=== PATIENT | female | born 1940 | race Two or more races ===

== ENCOUNTER 2024-04-10 23:16 | Inpatient (IN) | payer MEDICARE, OTHER ==
[~2024-04-10] VITALS: Ht 152.4 cm; Wt 37.6 kg
[2024-04-10] MEDS: CEFEPIME 1 GM in IV D5W 50 ML IV ONE (23:30)
[2024-04-10] MEDS ORDERED: VANCOMYCIN 1 GM /D5W 250 ML PB IV ONE (23:35)
[2024-04-10] MEDS ORDERED: CEFEPIME 1 GM VIAL ONE (23:35)
[2024-04-10] MEDS ORDERED: ACETAMINOPHEN 650 MG/SUPP.RECT RC ONE (23:35)
[2024-04-11] VITALS (80 sets, daily range): BP systolic 63–133; BP diastolic 36–114; TEMP 97.8–98.6; O2SAT 93–99
[2024-04-11] MEDS: ACETAMINOPHEN 650 MG/SUPP.RECT RC ONE (00:06)
[2024-04-11] MEDS: IV NS 0.9% 1,000 ML BAG IV ONE (00:06)
[2024-04-11] MEDS: VANCOMYCIN 1 GM in IV D5W 250 ML IV ONE (00:18)
[2024-04-11] MEDS: Calcium Gluconate 1GM/10ML 4.65 MEQ in IV NS 0.9% 100 ML IV ONE ×2 (01:30→02:30)
[2024-04-11] MEDS ORDERED: Calcium Gluconate 0.465 MEQ/ML VIAL IV ONE (01:39)
[2024-04-11] MEDS: POTASSIUM CL. PREMIX PERIPHER. 50 ML IV SCH (01:45)
[2024-04-11 02:00] LABS: APPEARANCE,URINE CLEAR (CLEAR); BILIRUBIN,URINE NEGATIVE (NEGATIVE); BLOOD, URINE NEGATIVE Ery/uL (NEGATIVE); COLOR,URINE YELLOW (YELLOW); KETONES,URINE NEGATIVE (NEGATIVE); LEUKOCYTE ESTERASE ,URINE 2+ (NEGATIVE); NITRITE, URINE NEGATIVE (NEGATIVE); PH,URINE 5.5 (5.0-8.0); PROTEIN,URINE NEGATIVE (NEGATIVE); UGLUCOSE NEGATIVE (NEGATIVE); UROBILINOGEN,URINE 0.2 EU/dL (0.2)
[2024-04-11] MEDS ORDERED: IOHEXOL-300 100 ML VIAL IV ONE (02:02)
[2024-04-11 02:37] LABS: SQUAMOUS EPITHELIAL CELL,UR Moderate /HPF (None Seen)
[2024-04-11 02:38] LABS: BACTERIA,URINE Moderate /HPF (None Seen)
[2024-04-11 02:39] LABS: RBC,URINE 0-2 /HPF (0-2)
[2024-04-11 02:40] LABS: ADD URINE CULTURE YES
[2024-04-11] MEDS ORDERED: POTASSIUM CL. PREMIX PERIPHER. 50 ML ONE (02:54)
[2024-04-11] MEDS ORDERED: MAGNESIUM HYDROXIDE 30 ML UDC PO PRN (03:30)
[2024-04-11] MEDS ORDERED: Z GUARD REMEDY 4 OZ OINT TP PRN (03:30)
[2024-04-11] MEDS ORDERED: ONDANSETRON HCL/PF 4 MG/2 ML VIAL IVP PRN (03:30)
[2024-04-11] MEDS ORDERED: MAG HYDROX/AL HYDROX/SIMETH 30 ML UDC PO PRN (03:30)
[2024-04-11] MEDS ORDERED: ACETAMINOPHEN 325 MG TABLET PO PRN (03:30)
[2024-04-11] MEDS ORDERED: PHENYLEPHRINE 50 MG in IV NS 0.9% 245 ML IV PRN (03:30)
[2024-04-11] MEDS ORDERED: OLAN5TAB6 PO (03:40)
[2024-04-11] MEDS ORDERED: GABA-532 PO (03:40)
[2024-04-11] MEDS ORDERED: OLAN5TAB3 PO (03:40)
[2024-04-11] MEDS ORDERED: POTASSIUM CL. PREMIX PERIPHER. 100 ML ONE (03:52)
[2024-04-11] MEDS: METRONIDAZOLE 500MG/ NS 100ML 500 MG in PREMIX 1 EA IV SCH (04:32)
[2024-04-11] MEDS: METRONIDAZOLE 500MG/ NS 100ML 100 ML IV ONE (04:51)
[2024-04-11] MEDS: PHENYLEPHRINE 50 MG in IV NS 0.9% 245 ML IV PRN (05:13)
[2024-04-11] MEDS: PHENYLEPHRINE 10 MG/ML VIAL ONE (05:24)
[2024-04-11] MEDS ORDERED: HYDR28.32 TP (08:27)
[2024-04-11] MEDS: PANTOPRAZOLE 40 MG VIAL IV SCH (08:44)
[2024-04-11 08:47] LABS: ABG BASE EXCESS -6.3 mmol/L (-2.0-3.0); ABG OXYGEN SATURATION 93.9 % (94.0-98.0); ABG PCO2 25.7 mmHg (32.0-45.0); ABG PH 7.426 (7.350-7.450); ABG PO2 67.3 mmHg (83.0-108.0); ABG TOTAL HEMOGLOBIN 12.3 G/dL (12.0-16.0); COHb 0.3 % (0.5-1.5); MetHb 0.1 % (0.0-1.5); O2Hb 93.5 % (94.0-97.0)
[2024-04-11] MEDS: IV 1/2NS 1000 ML 1,000 ML IV PRN (09:56)
[2024-04-11] MEDS: CEFEPIME 2 GM in IV D5W 100 ML IV SCH (10:18)
[2024-04-11] MEDS: Sodium Bicarbonate 100 MEQ in IV D5 / 0.2% NACL 1,000 ML IV SCH (11:13)
[2024-04-11] MEDS: THERAHONEY GEL 1.5 OZ TUBE TP SCH (12:37)
[2024-04-11] MEDS: MUPIROCIN OINT 2% 22 GM TUBE TP SCH (12:37)
[2024-04-11 14:25] LABS: CALCIUM, SERUM 7.7 mg/dL (8.5-10.1); CREATININE 1.6 mg/dL (0.6-1.3); MAGNESIUM 1.8 mg/dL (1.8-2.4); PHOSPHORUS 3.8 mg/dL (2.5-4.9); POTASSIUM 5.7 mmol/L (3.5-5.1)
[2024-04-11 14:29] LABS: MEAN CORPUSCULAR HEMOGLOBIN 29 PG (26.0-33.0)
[2024-04-11 14:34] LABS: EOSINOPHILS % (AUTO) 0.1 % (0.0-6.0); HEMATOCRIT 45 % (33-45); HEMOGLOBIN 14.2 g/dL (11.5-14.8); LYMPHOCYTES # (AUTO) 1.5 K/uL (0.8-4.8); LYMPHOCYTES % (AUTO) 4.7 % (20.0-44.0); MEAN CORPUSCULAR HGB CONC 32 g/dl (31.0-36.0); MEAN CORPUSCULAR VOLUME 92 fL (82-100); MONOCYTES # (AUTO) 0.5 K/uL (0.1-1.30); MONOCYTES % (AUTO) 1.5 % (2.0-12.0); NEUTROPHILS # (AUTO) 28.9 K/uL (1.8-8.9); NEUTROPHILS % (AUTO) 93.7 % (43.0-81.0); PLATELET COUNT (AUTO) 174 K/uL (150-450); RED BLOOD CELL COUNT(AUTO) 4.83 MIL/uL (4.0-5.2); RED CELL DISTRIBUTION WIDTH 15.6 % (11.5-15.0)
[2024-04-11 15:12] LABS: WHITE BLOOD COUNT (AUTO) 30.8 K/uL (4.3-11.0)
[2024-04-11 15:15] LABS: BAND % (MANUAL) 20 % (0.0-5.0); LYMPHOCYTES % (MANUAL) 5 % (16-48); MONOCYTES % (MANUAL) 1 % (0-11.0); NEUTROPHILS % (MANUAL) 74 (42-76); PLATELET ESTIMATE ADEQUATE
[2024-04-11 15:21] LABS: CALCIUM, SERUM 7.9 mg/dL (8.5-10.1); CREATININE 1.5 mg/dL (0.6-1.3); POTASSIUM 4.8 mmol/L (3.5-5.1)
[2024-04-11 18:26] LABS: OCCULT BLOOD STOOL NEGATIVE (NEGATIVE)
[2024-04-11] MEDS ORDERED: CEFEPIME 1 GM in IV D5W 50 ML IV SCH (21:00)
[2024-04-12] VITALS (59 sets, daily range): BP systolic 88–149; BP diastolic 51–94; TEMP 97.7–98.4; O2SAT 91–99
[2024-04-12 04:43] LABS: BASOPHILS % (AUTO) 0.1 % (0.0-2.0); EOSINOPHILS # (AUTO) 0.2 K/uL (0.0-0.7); EOSINOPHILS % (AUTO) 0.9 % (0.0-6.0); HEMATOCRIT 40 % (33-45); HEMOGLOBIN 13.2 g/dL (11.5-14.8); LYMPHOCYTES # (AUTO) 1.1 K/uL (0.8-4.8); LYMPHOCYTES % (AUTO) 4.7 % (20.0-44.0); MEAN CORPUSCULAR HEMOGLOBIN 29 PG (26.0-33.0); MEAN CORPUSCULAR HGB CONC 33 g/dl (31.0-36.0); MEAN CORPUSCULAR VOLUME 88 fL (82-100); MONOCYTES # (AUTO) 0.4 K/uL (0.1-1.30); MONOCYTES % (AUTO) 1.7 % (2.0-12.0); NEUTROPHILS # (AUTO) 21.7 K/uL (1.8-8.9); NEUTROPHILS % (AUTO) 92.6 % (43.0-81.0); PLATELET COUNT (AUTO) 242 K/uL (150-450); RED BLOOD CELL COUNT(AUTO) 4.58 MIL/uL (4.0-5.2); RED CELL DISTRIBUTION WIDTH 14.7 % (11.5-15.0); WHITE BLOOD COUNT (AUTO) 23.4 K/uL (4.3-11.0)
[2024-04-12 04:59] LABS: ALBUMIN 1.5 g/dL (3.4-5.0); BILIRUBIN,TOTAL 0.7 mg/dL (0.2-1.0); CALCIUM, SERUM 7.2 mg/dL (8.5-10.1); CREATININE 1.3 mg/dL (0.6-1.3); MAGNESIUM 1.7 mg/dL (1.8-2.4); PHOSPHORUS 2.9 mg/dL (2.5-4.9); POTASSIUM 3.8 mmol/L (3.5-5.1); TOTAL PROTEIN, SERUM 5.8 g/dL (6.4-8.2)
[2024-04-12] MEDS: Magnesium 1GM/D5W 100ML PREMIX 100 ML IV SCH (09:38)
[2024-04-12] MEDS: IV 1/2NS 1000 ML 1,000 ML IV PRN (11:09)
[2024-04-12] MEDS: VANCOMYCIN 500 MG in IV D5W 100ml IV SCH (15:42)
[2024-04-13] VITALS (14 sets, daily range): BP systolic 92–124; BP diastolic 52–81; TEMP 97–98.4; O2SAT 89–97
[2024-04-13 05:12] LABS: BASOPHILS % (AUTO) 0.1 % (0.0-2.0); EOSINOPHILS # (AUTO) 0.1 K/uL (0.0-0.7); EOSINOPHILS % (AUTO) 0.7 % (0.0-6.0); HEMATOCRIT 38 % (33-45); HEMOGLOBIN 12.9 g/dL (11.5-14.8); LYMPHOCYTES # (AUTO) 0.2 K/uL (0.8-4.8); LYMPHOCYTES % (AUTO) 2.3 % (20.0-44.0); MEAN CORPUSCULAR HEMOGLOBIN 30 PG (26.0-33.0); MEAN CORPUSCULAR HGB CONC 34 g/dl (31.0-36.0); MEAN CORPUSCULAR VOLUME 88 fL (82-100); MONOCYTES # (AUTO) 0.1 K/uL (0.1-1.30); MONOCYTES % (AUTO) 0.9 % (2.0-12.0); NEUTROPHILS # (AUTO) 10.2 K/uL (1.8-8.9); PLATELET COUNT (AUTO) 205 K/uL (150-450); RED BLOOD CELL COUNT(AUTO) 4.29 MIL/uL (4.0-5.2); RED CELL DISTRIBUTION WIDTH 15.1 % (11.5-15.0); WHITE BLOOD COUNT (AUTO) 10.7 K/uL (4.3-11.0)
[2024-04-13 05:27] LABS: CALCIUM, SERUM 7.4 mg/dL (8.5-10.1); MAGNESIUM 2.5 mg/dL (1.8-2.4); PHOSPHORUS 2.7 mg/dL (2.5-4.9); POTASSIUM 3.2 mmol/L (3.5-5.1)
[2024-04-13 08:11] LABS: PTH, INTACT 47 pg/mL (15-65)
[2024-04-13] MEDS: CEFEPIME 2 GM in IV D5W 100 ML IV SCH (08:56)
[2024-04-13] MEDS: POTASSIUM CL. PREMIX PERIPHER. 50 ML IV SCH (09:31)
[2024-04-13 10:12] LABS: CREATININE, URINE 37.2 MG/DL (30.0-125.0); URINE TOTAL PROTEIN 50.2 mg/dL (0-11.9)
[2024-04-13 13:10] LABS: *SPE A/G RATIO 0.5 (0.7-1.7); *SPE ALBUMIN 1.7 g/dL (2.9-4.4); *SPE ALPHA-1-GLOBULIN 0.4 g/dL (0.0-0.4); *SPE ALPHA-2-GLOBULIN 0.8 g/dL (0.4-1.0); *SPE BETA GLOBULIN 0.8 g/dL (0.7-1.3); *SPE GLOBULIN, TOTAL 3.6 g/dL (2.2-3.9); *SPE M-SPIKE Not Observed g/dL (Not Observed); *SPE PROTEIN TOTAL 5.3 g/dL (6.0-8.5); *SPEGAMMA GLOBULIN 1.5 g/dL (0.4-1.8)
[2024-04-14] VITALS: BP 96/50; TEMP 96.9; O2SAT 97
[2024-04-14 04:00] VITALS: BP 101/65; TEMP 97; O2SAT 94
[2024-04-14 07:08] LABS: CALCIUM, SERUM 7.4 mg/dL (8.5-10.1); POTASSIUM 3.9 mmol/L (3.5-5.1)
[2024-04-14 07:09] LABS: EOSINOPHILS # (AUTO) 0.1 K/uL (0.0-0.7); EOSINOPHILS % (AUTO) 1.2 % (0.0-6.0); HEMATOCRIT 41 % (33-45); HEMOGLOBIN 13.3 g/dL (11.5-14.8); LYMPHOCYTES # (AUTO) 0.4 K/uL (0.8-4.8); MEAN CORPUSCULAR HEMOGLOBIN 29 PG (26.0-33.0); MEAN CORPUSCULAR HGB CONC 32 g/dl (31.0-36.0); MEAN CORPUSCULAR VOLUME 90 fL (82-100); MONOCYTES # (AUTO) 0.3 K/uL (0.1-1.30); MONOCYTES % (AUTO) 2.7 % (2.0-12.0); NEUTROPHILS # (AUTO) 11.2 K/uL (1.8-8.9); NEUTROPHILS % (AUTO) 93.1 % (43.0-81.0); PLATELET COUNT (AUTO) 205 K/uL (150-450); RED BLOOD CELL COUNT(AUTO) 4.57 MIL/uL (4.0-5.2); RED CELL DISTRIBUTION WIDTH 15.8 % (11.5-15.0); WHITE BLOOD COUNT (AUTO) 12.1 K/uL (4.3-11.0)
[2024-04-14 08:00] VITALS: BP 113/54; TEMP 97.9; O2SAT 94
[2024-04-14 11:28] LABS: EOSINOPHILS % (MANUAL) 1 % (0-4); LYMPHOCYTES % (MANUAL) 2 % (16-48); MONOCYTES % (MANUAL) 4 % (0-11.0); NEUTROPHILS % (MANUAL) 93 (42-76); PLATELET ESTIMATE ADEQUATE
[2024-04-14] MEDS ORDERED: TPN/PPN PER PHARMACY IV PRN (11:30)
[2024-04-14 12:00] VITALS: BP 118/65; TEMP 98; O2SAT 94
[2024-04-14] MEDS: BLOOD SUGAR DIAGNOSTIC 1 EACH STRIP IN SCH (12:18)
[2024-04-14] MEDS: DEXTROSE 50%-WATER 50 ML DISP.SYRIN IV PRN (12:20)
[2024-04-14 14:04] LABS: MAGNESIUM 2.5 mg/dL (1.8-2.4); PHOSPHORUS 3.4 mg/dL (2.5-4.9)
[2024-04-14] MEDS: TPN BAG #1 IV SCH (14:31)
[2024-04-14 16:00] VITALS: BP 93/81; TEMP 98.2; O2SAT 94
[2024-04-14] MEDS: IV 1/2NS 1000 ML 1,000 ML IV PRN (17:43)
[2024-04-14 20:00] VITALS: BP 97/55; TEMP 97.5; O2SAT 94
[2024-04-15] VITALS (7 sets, daily range): BP systolic 102–123; BP diastolic 57–99; TEMP 97.5–98; O2SAT 92–97
[2024-04-15] MEDS: INSULIN REGULAR, HUMAN 100 UNIT/ML 3 ML VIAL SQ PRN (00:22)
[2024-04-15 07:20] LABS: BASOPHILS % (AUTO) 0.1 % (0.0-2.0); EOSINOPHILS # (AUTO) 0.1 K/uL (0.0-0.7); EOSINOPHILS % (AUTO) 0.6 % (0.0-6.0); HEMATOCRIT 41 % (33-45); HEMOGLOBIN 13.1 g/dL (11.5-14.8); LYMPHOCYTES # (AUTO) 0.4 K/uL (0.8-4.8); LYMPHOCYTES % (AUTO) 4.3 % (20.0-44.0); MEAN CORPUSCULAR HEMOGLOBIN 29 PG (26.0-33.0); MEAN CORPUSCULAR HGB CONC 32 g/dl (31.0-36.0); MEAN CORPUSCULAR VOLUME 92 fL (82-100); MONOCYTES # (AUTO) 0.2 K/uL (0.1-1.30); MONOCYTES % (AUTO) 2.9 % (2.0-12.0); NEUTROPHILS # (AUTO) 7.6 K/uL (1.8-8.9); NEUTROPHILS % (AUTO) 92.1 % (43.0-81.0); PLATELET COUNT (AUTO) 179 K/uL (150-450); RED BLOOD CELL COUNT(AUTO) 4.46 MIL/uL (4.0-5.2); RED CELL DISTRIBUTION WIDTH 16.1 % (11.5-15.0); WHITE BLOOD COUNT (AUTO) 8.2 K/uL (4.3-11.0)
[2024-04-15 07:23] LABS: CREATININE 1.3 mg/dL (0.6-1.3); MAGNESIUM 2.3 mg/dL (1.8-2.4); PHOSPHORUS 3.1 mg/dL (2.5-4.9); POTASSIUM 3.6 mmol/L (3.5-5.1)
[2024-04-15] MEDS: IV NS 0.9% 1,000 ML IV PRN (09:59)
[2024-04-15 10:09] LABS: ABG OXYGEN SATURATION 88.7 % (94.0-98.0); ABG PCO2 63.2 mmHg (32.0-45.0); ABG PH 7.097 (7.350-7.450); ABG PO2 60.9 mmHg (83.0-108.0); ABG TOTAL HEMOGLOBIN 13.8 G/dL (12.0-16.0); COHb 0.5 % (0.5-1.5); MetHb 0.1 % (0.0-1.5); O2Hb 88.2 % (94.0-97.0); SITE, ABG RIGHT RADIAL
[2024-04-15 13:15] LABS: ABG BASE EXCESS -11.7 mmol/L (-2.0-3.0); ABG OXYGEN SATURATION 97.9 % (94.0-98.0); ABG PCO2 60.3 mmHg (32.0-45.0); ABG PH 7.103 (7.350-7.450); ABG PO2 114.5 mmHg (83.0-108.0); ABG TOTAL HEMOGLOBIN 13.8 G/dL (12.0-16.0); COHb 0.4 % (0.5-1.5); MetHb 0.1 % (0.0-1.5); O2Hb 97.4 % (94.0-97.0); SITE, ABG RIGHT RADIAL
[2024-04-15] MEDS: TPN BAG #2 IV SCH (15:54)
[2024-04-15] MEDS: MINERAL OIL/PETROLATUM,WHITE 120 GM JAR TP PRN (17:34)
[2024-04-16] VITALS: BP 96/55; TEMP 97.5; O2SAT 96
[2024-04-16 04:00] VITALS: BP 128/88; TEMP 97.7; O2SAT 93
[2024-04-16 07:12] LABS: BASOPHILS % (AUTO) 0.1 % (0.0-2.0); EOSINOPHILS # (AUTO) 0.1 K/uL (0.0-0.7); EOSINOPHILS % (AUTO) 0.9 % (0.0-6.0); HEMATOCRIT 41 % (33-45); HEMOGLOBIN 13.1 g/dL (11.5-14.8); LYMPHOCYTES # (AUTO) 0.3 K/uL (0.8-4.8); LYMPHOCYTES % (AUTO) 5.1 % (20.0-44.0); MEAN CORPUSCULAR HEMOGLOBIN 29 PG (26.0-33.0); MEAN CORPUSCULAR HGB CONC 32 g/dl (31.0-36.0); MEAN CORPUSCULAR VOLUME 91 fL (82-100); MONOCYTES # (AUTO) 0.3 K/uL (0.1-1.30); MONOCYTES % (AUTO) 4.6 % (2.0-12.0); NEUTROPHILS % (AUTO) 89.3 % (43.0-81.0); PLATELET COUNT (AUTO) 158 K/uL (150-450); RED BLOOD CELL COUNT(AUTO) 4.49 MIL/uL (4.0-5.2); RED CELL DISTRIBUTION WIDTH 15.7 % (11.5-15.0); WHITE BLOOD COUNT (AUTO) 6.7 K/uL (4.3-11.0)
[2024-04-16 07:28] LABS: CALCIUM, SERUM 6.7 mg/dL (8.5-10.1); CREATININE 1.3 mg/dL (0.6-1.3); MAGNESIUM 2.3 mg/dL (1.8-2.4); POTASSIUM 3.5 mmol/L (3.5-5.1)
[2024-04-16 08:00] VITALS: BP 109/56; TEMP 97.6; O2SAT 95
[2024-04-16 09:00] LABS: ABG BASE EXCESS -10.4 mmol/L (-2.0-3.0); ABG OXYGEN SATURATION 95.4 % (94.0-98.0); ABG PCO2 40.6 mmHg (32.0-45.0); ABG PO2 78.8 mmHg (83.0-108.0); ABG TOTAL HEMOGLOBIN 13.5 G/dL (12.0-16.0); COHb 0.3 % (0.5-1.5); MetHb 0.2 % (0.0-1.5); O2Hb 94.9 % (94.0-97.0); SITE, ABG RIGHT RADIAL
[2024-04-16] MEDS: FAT EMULSION 20% 500 ML in PREMIX 1 EA IV SCH (09:22)
[2024-04-16] MEDS: Sodium Phosphate 15 MMOL in IV NS 0.9% 245 ML IV SCH (09:59)
[2024-04-16 12:00] VITALS: BP 109/56; TEMP 97.8; O2SAT 93
[2024-04-16 16:00] VITALS: BP 106/68; TEMP 97.5; O2SAT 93
[2024-04-16] MEDS: TPN BAG #3 IV SCH (17:40)
[2024-04-16 20:00] VITALS: BP 108/53; TEMP 97.5; O2SAT 91
[2024-04-17] VITALS: BP 80/40; TEMP 97.5; O2SAT 83
[2024-04-17 04:00] VITALS: BP 70/45; TEMP 97.5; O2SAT 83
[2024-04-17] MEDS ORDERED: TPN BAG #4 IV SCH (19:48)
== END 2024-04-17 05:06 | DRG 871 ==
LOC: ER 23:19 → ICU 04-11 02:36 → TELE1 04-13 10:45 → TELE-TD 04-15 15:32
PROVIDERS: ATTEND Internal Medicine
PROC: 5A09457 Assistance with Respiratory Ventilation, 24-96 Consecutive Hours, Continuous Positive Airway Pressure (ICD-10-PCS; principal; 2024-04-11)
PROC: 30233N1 Transfusion of Nonautologous Red Blood Cells into Peripheral Vein, Percutaneous Approach (ICD-10-PCS; 2024-04-11)
PROC: 02HV33Z Insertion of Infusion Device into Superior Vena Cava, Percutaneous Approach (ICD-10-PCS; 2024-04-11)
PROC: B548ZZA Ultrasonography of Superior Vena Cava, Guidance (ICD-10-PCS; 2024-04-11)
DX: A41.9 Sepsis, unspecified organism (principal); J15.69 Pneumonia due to other Gram-negative bacteria; L89.153 Pressure ulcer of sacral region, stage 3; L89.323 Pressure ulcer of left buttock, stage 3; L89.313 Pressure ulcer of right buttock, stage 3; J96.02 Acute respiratory failure with hypercapnia; J96.01 Acute respiratory failure with hypoxia; R65.21 Severe sepsis with septic shock; L89.133 Pressure ulcer of right lower back, stage 3; L89.143 Pressure ulcer of left lower back, stage 3; K57.20 Diverticulitis of large intestine with perforation and abscess without bleeding; E87.1 Hypo-osmolality and hyponatremia; E87.4 Mixed disorder of acid-base balance; N39.0 Urinary tract infection, site not specified; E87.20 Acidosis, unspecified; L12.0 Bullous pemphigoid; L97.319 Non-pressure chronic ulcer of right ankle with unspecified severity; N17.9 Acute kidney failure, unspecified; J98.11 Atelectasis; F01.50 Vascular dementia, unspecified severity, without behavioral disturbance, psychotic disturbance, mood disturbance, and anxiety; D64.9 Anemia, unspecified; E11.9 Type 2 diabetes mellitus without complications; E83.51 Hypocalcemia; E86.0 Dehydration; E87.5 Hyperkalemia; I10 Essential (primary) hypertension; Z66 Do not resuscitate; Z20.822 Contact with and (suspected) exposure to COVID-19; M20.5X2 Other deformities of toe(s) (acquired), left foot; M20.5X1 Other deformities of toe(s) (acquired), right foot; M89.8X9 Other specified disorders of bone, unspecified site; M24.571 Contracture, right ankle; M24.572 Contracture, left ankle; L97.519 Non-pressure chronic ulcer of other part of right foot with unspecified severity; R21 Rash and other nonspecific skin eruption
CPT/HCPCS: 36415; 36600; 71045-TC; 71260-TC; 80048-TC; 80053-TC; 80076-TC; 80202-TC; 81001; 82272-TC; 82550-TC; 82570-TC; 82803-TC; 82962-TC; 83605-TC; 83735-TC; 83880; 83970; 84100-TC; 84155; 84165; 84300-TC; 84478-TC; 85025-TC; 85730-TC; 86850-TC; 87040-TC; 87081-TC; 94762-TC; 94799-TC; A4216; A4223; A6253; A9563; G0378; J0612; J0692; J1815; J2470; J3370; J3475; J3480; J3490; J7030; J7050; J7060; P9016; Q9967